=== PATIENT | male | born 1995 | race African-American/Black ===

== ENCOUNTER 2018-09-12 12:08 | Emergency (ER) | payer OTHER ==
[~2018-09-12] VITALS: Ht 180.3 cm; Wt 108.9 kg
[2018-09-12] MEDS ORDERED: TESSALON PERLE100 MG PO (13:06)
[2018-09-12] MEDS ORDERED: CLARINEX-D 121 EACH PO (13:06)
[2018-09-12 13:58] VITALS: BP 129/62
== END 2018-09-12 13:35 | disposition home or self-care (01) ==
LOC: ER 12:08
DX: J06.9 Acute upper respiratory infection, unspecified (principal); F17.210 Nicotine dependence, cigarettes, uncomplicated